=== PATIENT | female | born 1990 | race Caucasian/White ===

== ENCOUNTER 2017-04-26 16:21 | Emergency (ER) | payer MEDICAID ==
[~2017-04-26] VITALS: Ht 165.1 cm; Wt 53.3 kg
[2017-04-26 16:23] VITALS: BP 116/82
[2017-04-26] MEDS ORDERED: FAMOTIDINE 20 MG TABLET ONE (16:51)
[2017-04-26] MEDS ORDERED: ACETAMINOPHEN 325 MG TABLET PO ONE (17:00)
[2017-04-26] MEDS ORDERED: FAMOTIDINE 20 MG TABLET PO ONE (17:00)
[2017-04-26] MEDS ORDERED: ACETAMINOPHEN 325 MG TABLET ONE (17:33)
== END 2017-04-26 17:47 | disposition home or self-care (01) ==
LOC: ED 16:45
DX: T78.40XA Allergy, unspecified, initial encounter (principal); L50.9 Urticaria, unspecified
CPT/HCPCS: 99284; J7512; Q0177